=== PATIENT | male | born 1975 | race Caucasian/White ===

== ENCOUNTER 2017-11-30 06:57 | Emergency (ER) | END 2017-11-30 11:01 | disposition home or self-care (01) ==

== ENCOUNTER 2018-01-12 17:25 | Emergency (ER) | END 2018-01-12 21:17 | disposition home or self-care (01) ==

== ENCOUNTER 2018-01-22 17:43 | Emergency (ER) | END 2018-01-22 23:48 | disposition home or self-care (01) ==